=== PATIENT | female | born 1980 | race Caucasian/White ===

== ENCOUNTER 2017-06-13 14:40 | Emergency (ER) | payer OTHER ==
[~2017-06-13] VITALS: Ht 165.1 cm; Wt 145.1 kg
[2017-06-13 14:50] VITALS: BP 144/86
[2017-06-13] MEDS ORDERED: DOXY100C2 PO (15:38)
--- NOTE | 2017-06-13 15:38 | PHYS DOC ---
Past History Past Medical History: No Pertinent History Past Surgical History: Cholecystectomy, Other Additional Smoking Information: 1/2 pack a day Alcohol Use: Occasionally Drug Use: None Adult General Chief Complaint Chief Complaint: ABSCESS HPI HPI Patient is a 36 year old F who presents with a rash under her left armpit. Abbey says that her symptoms started 3-4 days ago and have mildly the progressively worsened. Yesterday she did note a small pimple in the middle of her rash which she popped and had puslike drainage. She's had no drainage since then. She has no fever sweats or chills. She has no other associated symptoms. She has no other exacerbating or alleviating factors. Review of Systems Review of Systems Constitutional: Denies fever or chills [] Eyes: Denies change in visual acuity, redness, or eye pain [] HENT: Denies nasal congestion or sore throat [] Respiratory: Denies cough or shortness of breath [] Cardiovascular: No additional information not addressed in HPI [] GI: Denies abdominal pain, nausea, vomiting, bloody stools or diarrhea [] : Denies dysuria or hematuria [] Musculoskeletal: Denies back pain or joint pain [] Integument: Give except history of present illness Neurologic: Denies headache, focal weakness or sensory changes [] Endocrine: Denies polyuria or polydipsia [] All other systems were reviewed and found to be within normal limits, except as documented in this note. Family History Family History No pertinent family medical history was reported Current Medications Current Medications Current medications reviewed Allergies Allergies Allergies Coded Allergies Type Severity Reaction Last Updated Verified melon Allergy Mild 06/13/17 Yes Physical Exam Physical Exam Constitutional: Well developed, well nourished, no acute distress, non-toxic appearance. [] HENT: Normocephalic, atraumatic, Eyes: EOMI, conjunctiva normal, no discharge. [] Neck: Normal range of motion, no tenderness, supple, no stridor. [] Cardiovascular:Heart rate regular rhythm, Lungs & Thorax: Bilateral breath sounds clear to auscultation [] Skin: Left axilla: Mild erythematous area with no region of flocculence. No drainage noted Back: No tenderness, no CVA tenderness. [] Extremities: No tenderness, no cyanosis, no clubbing, ROM intact, no edema. [] Neurologic: Alert and oriented X 3, normal motor function, normal sensory function, no focal deficits noted. [] Psychologic: Affect normal, judgement normal, mood normal. [] Current Patient Data Vital Signs Vital Signs Date Time Temp Pulse Resp B/P (MAP) Pulse Ox O2 Delivery O2 Flow Rate FiO2 06/13/17 14:50 98.6 88 16 97 Room Air EKG EKG [] Radiology/Procedures Radiology/Procedures [] Course & Med Decision Making Course & Med Decision Making Pertinent Labs and Imaging studies reviewed. (See chart for details) [] Dragon Disclaimer Dragon Disclaimer This electronic medical record was generated, in whole or in part, using a voice recognition dictation system. Departure Departure: Impression: Primary Impression: Cellulitis Disposition: HOME, SELF-CARE Condition: STABLE Referrals: ANAND IBANEZ MD (PCP) Patient Instructions: Cellulitis Additional Instructions: Abbey was seen in the emergency department for rash. No emergency medical condition was found on history or physical exam. Her symptoms are most consistent with a bacterial skin infection. She was started on an oral antibiotic and advised follow-up with her primary care doctor as needed for further management. Scripts Doxycycline Hyclate (DOXYCYCLINE HYCLATE) 100 Mg Capsule 1 CAP PO BID for 10 Days, #20 CAP Prov: ANAND BLANCO MD 06/13/17 Problem Qualifiers Primary Impression: Cellulitis Site of cellulitis: extremity Site of cellulitis of extremity: axilla Laterality: left Qualified Codes: L03.112 - Cellulitis of left axilla ANAND BLANCO MD Jun 13, 2017 15:38
== END 2017-06-13 15:58 | disposition home or self-care (01) ==
LOC: ER 14:40
DX: L03.112 Cellulitis of left axilla (principal); F17.200 Nicotine dependence, unspecified, uncomplicated; Z91.018 Allergy to other foods
CPT/HCPCS: 99283

== ENCOUNTER 2018-03-26 21:01 | Emergency (ER) | payer OTHER ==
[~2018-03-26] VITALS: Ht 165.1 cm; Wt 138.3 kg
[~2018-03-26 21:01] MED LIST: DOXY100C2 PO
[2018-03-26] MEDS ORDERED: IV NORMAL SALINE 1,000ML 1,000 ML IV SCH (21:25)
[2018-03-26] MEDS ORDERED: LIDO:MAALOX 1:1 20 ML SINGLE DOSE. PO ONE (21:30)
--- NOTE | 2018-03-26 21:51 | PHYS DOC ---
Past History Past Medical History: Depression Past Surgical History: Cholecystectomy Additional Past Surgical Histo: E-SURE Alcohol Use: Heavy Additional Alcohol Information: heavy drinker, is trying to stop Drug Use: None Adult General Chief Complaint Chief Complaint: ABDOMINAL PAIN HPI HPI Patient is a 37 year old female who presents to the emergency department for evaluation. She states that for the past few days, she has been having intermittent upper abdominal pain, intermittent, and sharp. She has not had nausea or vomiting, but admits to chronic diarrhea for years. She denies any lower abdominal pain, vaginal bleeding or discharge, or urinary symptoms. The order of alcohol detectable on the patient's breath. She admits that she has had problems with heavy alcohol use in the past, but has been trying to cut down recently. She states she did have "8-9 ounces" of liquor tonight. She states that she saw her PCP several weeks ago for similar symptoms of abdominal discomfort, and was told that her liver function tests were elevated, which was attributed to alcohol use at the time by her PCP. There are no alleviating or exacerbating factors to the patient's symptoms. Review of Systems Review of Systems Constitutional: Denies fever or chills [] Eyes: Denies change in visual acuity, redness, or eye pain [] HENT: Denies nasal congestion or sore throat [] Respiratory: Denies cough or shortness of breath [] Cardiovascular: The patient denies any shortness of breath, chest pain, palpitations, or orthopnea[] GI: Denies nausea, vomiting, bloody stools or diarrhea [] : Denies dysuria or hematuria [] Musculoskeletal: Denies back pain or joint pain [] Integument: Denies rash or skin lesions [] Neurologic: Denies headache, focal weakness or sensory changes [] Endocrine: Denies polyuria or polydipsia [] All other systems were reviewed and found to be within normal limits, except as documented in this note. Current Medications Current Medications Current Medications Medications (Trade) Dose Ordered Sig/Yoan Start Time Stop Time Status Last Admin Dose Admin Multi-Ingredient Mouthwash/Gargle (Gi Cocktail) 20 ml 1X ONCE 03/26/18 21:30 03/26/18 21:33 DC Sodium Chloride 1,000 ml @ 1,000 mls/hr Q1H 03/26/18 21:25 03/26/18 22:24 Allergies Allergies Allergies Coded Allergies Type Severity Reaction Last Updated Verified melon Allergy Mild 06/13/17 Yes Physical Exam Physical Exam PHYSICAL EXAM: CONSTITUTIONAL: Well developed, well nourished HEAD: normocephalic, atraumatic EENT: PERRL, EOMI. Conjunctivae normal color, sclerae non-icteric; moist mucous membranes. NECK: Supple, non-tender; no meningismus. LUNGS: Lungs CTA, breathing even and unlabored. Normal air movement. HEART: Regular rate and rhythm, no murmur CHEST: No deformity; non-tender ABDOMEN: The abdomen is soft, and non-tender, normal bowel sounds are present. There is no reproducible abdominal tenderness to palpation. No masses or bruits. EXTREM: Normal ROM; no deformity, no calf tenderness. Normal pulses palpable in all extremities. There is no pedal edema. SKIN: No rash; no diaphoresis NEURO: Alert; normal speech and cognition; CN's grossly intact; strength grossly intact without focal deficit. BACK: No CVA TTP. Current Patient Data Vital Signs Vital Signs Date Time Temp Pulse Resp B/P (MAP) Pulse Ox O2 Delivery O2 Flow Rate FiO2 03/26/18 21:05 97.9 82 20 95 Room Air Lab Results Laboratory Tests Test 03/26/18 21:09 03/26/18 21:40 Urine Collection Type Unknown Urine Color Straw Urine Clarity Clear Urine pH 5.5 Urine Specific Hustler <=1.005 Urine Protein Neg Urine Glucose (UA) Neg mg/dL Urine Ketones (Stick) Neg mg/dL Urine Blood Trace Urine Nitrite Neg Urine Bilirubin Neg Urine Urobilinogen Dipstick 0.2 mg/dL Urine Leukocyte Esterase Neg Urine RBC 0 /HPF Urine WBC 1-4 /HPF Urine Squamous Epithelial Cells Many /LPF Urine Bacteria Few /HPF White Blood Count 4.2 x10^3/uL Red Blood Count 4.68 x10^6/uL Hemoglobin 13.2 g/dL Hematocrit 40.1 % Mean Corpuscular Volume 86 fL Mean Corpuscular Hemoglobin 28 pg Mean Corpuscular Hemoglobin Concent 33 g/dL Red Cell Distribution Width 14.5 % Platelet Count 168 x10^3/uL Neutrophils (%) (Auto) 65 % Lymphocytes (%) (Auto) 25 % Monocytes (%) (Auto) 8 % Eosinophils (%) (Auto) 2 % Basophils (%) (Auto) 1 % Neutrophils # (Auto) 2.7 x10^3uL Lymphocytes # (Auto) 1.1 x10^3/uL Monocytes # (Auto) 0.3 x10^3/uL Eosinophils # (Auto) 0.1 x10^3/uL Basophils # (Auto) 0.0 x10^3/uL Sodium Level 136 mmol/L Potassium Level 3.5 mmol/L Chloride Level 101 mmol/L Carbon Dioxide Level 26 mmol/L Anion Gap 9 Blood Urea Nitrogen 10 mg/dL Creatinine 0.7 mg/dL Estimated GFR (Cockcroft-Gault) 94.7 BUN/Creatinine Ratio 14 Glucose Level 107 mg/dL Calcium Level 8.4 mg/dL Total Bilirubin 0.5 mg/dL Aspartate Amino Transf (AST/SGOT) 132 U/L Alanine Aminotransferase (ALT/SGPT) 231 U/L Alkaline Phosphatase 83 U/L Total Protein 7.3 g/dL Albumin 3.8 g/dL Albumin/Globulin Ratio 1.1 Lipase 194 U/L Ethyl Alcohol Level 175 mg/dL Current Medications Medications (Trade) Dose Ordered Sig/Yoan Route PRN Reason Start Time Stop Time Status Last Admin Dose Admin Multi-Ingredient Mouthwash/Gargle (Gi Cocktail) 20 ml 1X ONCE PO 03/26/18 21:30 03/26/18 21:33 DC 03/26/18 21:53 Sodium Chloride 1,000 ml @ 1,000 mls/hr Q1H IV 03/26/18 21:25 03/26/18 22:24 DC 03/26/18 21:53 Bedside HCG negative EKG EKG [] Radiology/Procedures Radiology/Procedures [] Course & Med Decision Making Course & Med Decision Making Pertinent Labs and Imaging studies reviewed. (See chart for details) []The patient's condition remained stable. She had improvement in her symptoms with GI cocktail. Discussed test results with the patient, the importance of close outpatient follow-up with her PCP, the importance of getting help with alcohol abuse, and return precautions. Dragon Disclaimer Dragon Disclaimer This electronic medical record was generated, in whole or in part, using a voice recognition dictation system. Departure Departure: Impression: Primary Impression: Gastritis Additional Impressions: Alcoholism Abdominal pain Disposition: HOME, SELF-CARE Condition: STABLE Referrals: ANAND IBANEZ MD (PCP) Patient Instructions: Abdominal Pain, Alcohol Intoxication, Alcohol Problems, Gastritis, Adult Scripts Omeprazole (OMEPRAZOLE) 20 Mg Capsule.dr 1 CAP PO DAILY for -, #30 CAP 0 Refills Prov: GERALD ESPINOZA MD 03/26/18 Problem Qualifiers GERALD ESPINOZA MD Mar 26, 2018 21:51
[2018-03-26 22:02] LABS: BASO % 1 % (0-3); EOS # 0.1 x10^3/uL (0.0-0.7); EOS % 2 % (0-3); HEMATOCRIT 40.1 % (36.0-47.0); HEMOGLOBIN 13.2 g/dL (12.0-15.5); LYMPH # 1.1 x10^3/uL (1.0-4.8); LYMPH % 25 % (24-48); MEAN CORPUSCULAR HEMOGLOBIN 28 pg (25-35); MEAN CORPUSCULAR HGB CONC 33 g/dL (31-37); MEAN CORPUSCULAR VOLUME 86 fL (79-100); MONO # 0.3 x10^3/uL (0.0-1.1); MONO % 8 % (0-9); NEUT # 2.7 x10^3uL (1.8-7.7); NEUT % 65 % (31-73); PLATELET COUNT 168 x10^3/uL (140-400); RED BLOOD COUNT 4.68 x10^6/uL (3.50-5.40); RED CELL DISTRIBUTION WIDTH 14.5 % (11.5-14.5); WHITE BLOOD COUNT 4.2 x10^3/uL (4.0-11.0)
[2018-03-26 22:17] LABS: ALBUMIN 3.8 g/dL (3.4-5.0); ALBUMIN/GLOBULIN RATIO 1.1 (1.0-1.7); CALCIUM 8.4 mg/dL (8.5-10.1); CREATININE 0.7 mg/dL (0.6-1.0); GFR 94.7; POTASSIUM 3.5 mmol/L (3.5-5.1); TOTAL BILIRUBIN 0.5 mg/dL (0.2-1.0); TOTAL PROTEIN 7.3 g/dL (6.4-8.2)
[2018-03-26 22:27] LABS: BACTERIA,URINE FEW /HPF (0-FEW); BILIRUBIN,URINE NEG (NEG); CLARITY,URINE CLEAR; COLOR,URINE STRAW; GLUCOSE,URINE NEG (NEG); NITRITE,URINE NEG (NEG); RBC,URINE 0 /HPF (0-2); SQUAMOUS EPITHELIAL CELL,UR MANY /LPF; UROBILINOGEN,URINE 0.2 mg/dL (0.2 mg/dL)
[2018-03-26] MEDS ORDERED: OMEP20CA9 PO (22:35)
[2018-03-26 22:49] VITALS: BP 154/84
== END 2018-03-26 22:50 | disposition home or self-care (01) ==
LOC: ER 21:01
DX: K29.70 Gastritis, unspecified, without bleeding (principal); F10.20 Alcohol dependence, uncomplicated; F32.9 Major depressive disorder, single episode, unspecified; Z90.49 Acquired absence of other specified parts of digestive tract; Y90.6 Blood alcohol level of 120-199 mg/100 ml; Z91.018 Allergy to other foods
CPT/HCPCS: 36415; 80053; 81001; 81025; 83690; 85025; 96360; 99283; G0480; J7030

== ENCOUNTER 2018-07-10 19:59 | Emergency (ER) | payer OTHER ==
[~2018-07-10] VITALS: Ht 165.1 cm; Wt 137.4 kg
[~2018-07-10 19:59] MED LIST changes: +OMEP20CA9 PO
[2018-07-10 20:07] VITALS: BP 124/75
[2018-07-10] MEDS ORDERED: IV NORMAL SALINE 1,000ML 1,000 ML IV SCH (20:34)
--- NOTE | 2018-07-10 20:44 | PHYS DOC ---
Past History Past Medical History: Depression Past Surgical History: Colectomy, , Tubal ligation Additional Past Surgical Histo: E-SURE Additional Smoking Information: 04/29 PPD Alcohol Use: Occasionally Drug Use: None Adult General Chief Complaint Chief Complaint: ABDOMINAL PAIN HPI HPI Patient is a 37-year-old female who presents with complaint of left upper quadrant abdominal pain that started about a week ago. She states that she noticed that the pain had started after drinking alcohol. She states that she has had this problem for the last few months and states that usually the pain clears up within a day or 2 but currently the pain has been present for the last week. She describes pain as like a sharp stabbing pain. She states the pain is worsened especially with fatty foods. She indicates that she has not had anything to eat since yesterday and since that time the pain has improved and currently she rates it at about a 4 out of 10. She denies any fever. She also denies any vomiting or diarrhea. Review of Systems Review of Systems Constitutional: Denies fever or chills [] Respiratory: Denies cough or shortness of breath [] Cardiovascular: No additional information not addressed in HPI [] GI: Complains of left upper abdominal pain without vomiting or diarrhea [] Musculoskeletal: Denies back pain or joint pain [] Integument: Denies rash or skin lesions [] All other systems were reviewed and found to be within normal limits, except as documented in this note. Current Medications Current Medications Current Medications Medications (Trade) Dose Ordered Sig/Yoan Start Time Stop Time Status Last Admin Dose Admin Ketorolac Tromethamine (Toradol 30mg Vial) 30 mg 1X ONCE 07/10/18 20:45 07/10/18 20:46 UNV Ondansetron HCl (Zofran) 4 mg 1X ONCE 07/10/18 20:45 07/10/18 20:46 UNV Sodium Chloride 1,000 ml @ 1,000 mls/hr Q1H 07/10/18 20:34 07/10/18 21:33 UNV Allergies Allergies Allergies Coded Allergies Type Severity Reaction Last Updated Verified melon Allergy Mild 06/13/17 Yes Physical Exam Physical Exam Constitutional: Well developed, well nourished, no acute distress, non-toxic appearance. [] HENT: Normocephalic, atraumatic, bilateral external ears normal, oropharynx moist, no oral exudates, nose normal. [] Eyes: PERRLA, EOMI, conjunctiva normal, no discharge. [] Neck: Normal range of motion, no tenderness, supple, no stridor. [] Cardiovascular:Heart rate regular rhythm, no murmur [] Lungs & Thorax: Bilateral breath sounds clear to auscultation [] Abdomen: Bowel sounds normal, soft, with left upper quadrant tenderness. [] Skin: Warm, dry, no erythema, no rash. [] Extremities: No tenderness, no cyanosis, no clubbing, ROM intact, no edema. [] Neurologic: Alert and oriented X 3, no focal deficits noted. [] Current Patient Data Vital Signs Vital Signs Date Time Temp Pulse Resp B/P (MAP) Pulse Ox O2 Delivery O2 Flow Rate FiO2 07/10/18 20:07 98.2 100 20 95 EKG EKG [] Radiology/Procedures Radiology/Procedures [] Impressions: REASON: abd pain PROCEDURE: CT ABD PELV W/ IV CONTRST ONLY EXAM: CT Abdomen and Pelvis with IV contrast CLINICAL HISTORY: Left upper abdominal pain. Hx cholecystectomy, x2, e-sure tubal procedure.. COMPARISON: none TECHNIQUE: Helical CT of the abdomen and pelvis was performed following the administration of intravenous contrast. Axial, coronal and sagittal reformatted images were generated. PQRS compliance statement - One or more of the following individualized dose reduction techniques were utilized for this study: 1. Automated exposure control 2. Adjustment of the mA and/or kV according to patient size 3. Use of iterative reconstruction technique FINDINGS: Lower chest: Lung bases are clear. Abdomen and Pelvis: No focal liver lesion. Accounting for postcholecystectomy state, no biliary ductal dilatation. Spleen is mildly enlarged measuring 14.8 cm in size. Adrenal glands and pancreas are unremarkable. Symmetric nephrograms. No focal renal lesion. No hydronephrosis. Appendix is normal. No small or large bowel dilatation. Moderate colonic stool content. Tubal ligation coiling is seen. No abdominal or pelvic ascites. No abdominal or pelvic lymphadenopathy is seen although a few prominent mesenteric lymph nodes are seen, possibly reactive. Small fat-containing periumbilical hernia. Bones: Bilateral L5 pars defects are seen with 9 mm anterolisthesis of L5 on S1. IMPRESSION: 1. Spleen is mildly enlarged. 2. Appendix is normal. 3. A few mildly prominent mesenteric lymph nodes are seen, possibly reactive. Electronically signed by: Nilesh Venegas MD (07/10/2018 9:56 PM) [facility] Course & Med Decision Making Course & Med Decision Making Pertinent Labs and Imaging studies reviewed. (See chart for details) [] Dragon Disclaimer Dragon Disclaimer This electronic medical record was generated, in whole or in part, using a voice recognition dictation system. Departure Departure: Impression: Primary Impression: Abdominal pain, LUQ Additional Impression: Gastritis Disposition: HOME, SELF-CARE Condition: STABLE Referrals: ANAND IBANEZ MD (PCP) Patient Instructions: Abdominal Pain, Gastritis, Adult Scripts Tramadol Hcl (TRAMADOL HCL) 50 Mg Tablet 50 MG PO PRN Q6HRS PRN for PAIN, #12 TAB Prov: JD TELLEZ Jr. DO 07/10/18 Ondansetron Hcl (ZOFRAN) 4 Mg Tablet 4 MG PO Q6HRS PRN for NAUSEA, #12 TAB Prov: JD TELLEZ Jr. DO 07/10/18 Pantoprazole Sodium (PROTONIX) 40 Mg Tablet.dr 1 TAB PO DAILY for gastritis, #30 TAB Prov: JD TELLEZ Jr. DO 07/10/18 Problem Qualifiers Additional Impression: Gastritis Gastritis type: unspecified gastritis Chronicity: unspecified Gastritis bleeding: without bleeding Qualified Codes: K29.70 - Gastritis, unspecified, without bleeding JD TELLEZ Jr. DO Jul 10, 2018 20:44
[2018-07-10 20:46] LABS: BASO % 1 % (0-3); EOS # 0.1 x10^3/uL (0.0-0.7); EOS % 1 % (0-3); HEMATOCRIT 41.9 % (36.0-47.0); HEMOGLOBIN 14.2 g/dL (12.0-15.5); LYMPH # 0.4 x10^3/uL (1.0-4.8); LYMPH % 10 % (24-48); MEAN CORPUSCULAR HEMOGLOBIN 29 pg (25-35); MEAN CORPUSCULAR HGB CONC 34 g/dL (31-37); MEAN CORPUSCULAR VOLUME 86 fL (79-100); MONO # 0.2 x10^3/uL (0.0-1.1); MONO % 5 % (0-9); NEUT # 3.4 x10^3uL (1.8-7.7); NEUT % 84 % (31-73); PLATELET COUNT 196 x10^3/uL (140-400); RED BLOOD COUNT 4.86 x10^6/uL (3.50-5.40); RED CELL DISTRIBUTION WIDTH 14.3 % (11.5-14.5)
[2018-07-10 20:54] LABS: ALBUMIN/GLOBULIN RATIO 1.3 (1.0-1.7); CALCIUM 8.8 mg/dL (8.5-10.1); CREATININE 0.8 mg/dL (0.6-1.0); GFR 81.2; POTASSIUM 3.9 mmol/L (3.5-5.1); TOTAL BILIRUBIN 1.6 mg/dL (0.2-1.0); TOTAL PROTEIN 7.1 g/dL (6.4-8.2)
[2018-07-10] MEDS ORDERED: KETOROLAC 30 MG/ML VIAL. IV ONE (21:00)
[2018-07-10] MEDS ORDERED: ONDANSETRON PF 4 MG/2 ML VIAL. IV ONE (21:00)
[2018-07-10] MEDS ORDERED: IOHEXOL 300 MG/ML 75 ML VIAL. IV ONE ×2 (21:15)
[2018-07-10 21:22] LABS: BILIRUBIN,URINE NEG (NEG); CLARITY,URINE CLEAR; COLOR,URINE YELLOW; GLUCOSE,URINE NEG (NEG); UROBILINOGEN,URINE 1 mg/dL (0.2 mg/dL)
[2018-07-10 21:23] LABS: BACTERIA,URINE 0 /HPF (0-FEW); HYALINE CASTS, URINE OCC /HPF; NITRITE,URINE NEG (NEG); SQUAMOUS EPITHELIAL CELL,UR FEW /LPF; WBC,URINE 0 /HPF (0-4)
--- NOTE | 2018-07-10 21:59 | RAD ---
EXAM: CT Abdomen and Pelvis with IV contrast CLINICAL HISTORY: Left upper abdominal pain. Hx cholecystectomy, x2, e-sure tubal procedure.. COMPARISON: none TECHNIQUE: Helical CT of the abdomen and pelvis was performed following the administration of intravenous contrast. Axial, coronal and sagittal reformatted images were generated. PQRS compliance statement - One or more of the following individualized dose reduction techniques were utilized for this study: 1. Automated exposure control 2. Adjustment of the mA and/or kV according to patient size 3. Use of iterative reconstruction technique FINDINGS: Lower chest: Lung bases are clear. Abdomen and Pelvis: No focal liver lesion. Accounting for postcholecystectomy state, no biliary ductal dilatation. Spleen is mildly enlarged measuring 14.8 cm in size. Adrenal glands and pancreas are unremarkable. Symmetric nephrograms. No focal renal lesion. No hydronephrosis. Appendix is normal. No small or large bowel dilatation. Moderate colonic stool content. Tubal ligation coiling is seen. No abdominal or pelvic ascites. No abdominal or pelvic lymphadenopathy is seen although a few prominent mesenteric lymph nodes are seen, possibly reactive. Small fat-containing periumbilical hernia. Bones: Bilateral L5 pars defects are seen with 9 mm anterolisthesis of L5 on S1. IMPRESSION: 1. Spleen is mildly enlarged. 2. Appendix is normal. 3. A few mildly prominent mesenteric lymph nodes are seen, possibly reactive. Electronically signed by: Nilesh Venegas MD (07/10/2018 9:56 PM) [facility]
[2018-07-10] MEDS ORDERED: TRAM50TA PO (22:15)
[2018-07-10] MEDS ORDERED: ONDA4TAB7 PO (22:15)
[2018-07-10] MEDS ORDERED: PANT40TA3 PO (22:15)
== END 2018-07-10 22:33 | disposition home or self-care (01) ==
LOC: ER 19:59
DX: K29.70 Gastritis, unspecified, without bleeding (principal); R16.1 Splenomegaly, not elsewhere classified; F17.200 Nicotine dependence, unspecified, uncomplicated; K42.9 Umbilical hernia without obstruction or gangrene; Z90.49 Acquired absence of other specified parts of digestive tract; Z98.890 Other specified postprocedural states; Z91.018 Allergy to other foods
CPT/HCPCS: 36415; 74177; 80053; 81001; 83690; 85025; 96361; 96374; 96375; 99284; J1885; J2405; Q9967; J7030